=== PATIENT | female | born 1950 | race Caucasian/White ===

== ENCOUNTER 2017-10-20 17:29 | Emergency (ER) | payer OTHER ==
[2017-10-20 17:42] VITALS: BP 127/82
--- NOTE | 2017-10-20 18:11 | EDPHY ---
H & P Time Seen by Provider: 10/20/17 17:36 HPI/ROS: 67-year-old female presents complaining swelling, redness and oozing from a wound where she had a melanoma removed 1 week ago. No fevers or chills Review of systems as per hpi General no fever no chills no weakness HEENT no eye pain no eye discharge. No eye redness, no sore throat Respiratory no cough, no shortness of breath Cardiac no chest pain, no peripheral edema GI no abdominal pain, no diarrhea, no constipation, no nausea, no vomiting no flank pain, no hematuria, no dysuria Musculoskeletal no myalgias, no joint pain Heme no easy bruising, no easy bleeding Endo no polyuria, no polydipsia Skin positive rashes, no pruritus Neuro no syncope, no dizziness, no headaches Psych is no suicidal ideation, no homicidal ideation Past Medical/Surgical History: Chronic lung infections Melanoma Social History: Denies alcohol or drug use Smoking Status: Never smoked Physical Exam: 67-year-old female alert and oriented no acute distress nontoxic appearance, afebrile Atraumatic normocephalic Neck no JVD No respiratory distress Back Mid lower back with healing wound with serosanguineous drainage One suture visible at each end of the wound, scattered areas of erythema and induration Not fluctuant wound area with slight swelling and erythema 4 cm by 1.5 cm Constitutional: Initial Vital Signs Temperature (C) 37.3 C 10/20/17 17:36 Heart Rate 95 10/20/17 17:36 Respiratory Rate 16 10/20/17 17:36 Blood Pressure 127/82 H 10/20/17 17:36 O2 Sat (%) 96 10/20/17 17:36 O2 Delivery Mode Room Air Allergies/Adverse Reactions: ciprofloxacin Allergy (Severe, Verified 10/20/17 17:59) Sulfa (Sulfonamide Antibiotics) Allergy (Severe, Verified 10/20/17 17:58) Anaphylaxis codeine Adverse Reaction (Verified 10/20/17 17:57) decongestants Adverse Reaction (Intermediate, Uncoded 10/20/17 17:57) Home Medications: Medication Instructions Recorded AMOXICILLIN 10/20/17 Accolate 10/20/17 Amitiza 10/20/17 Amitriptyline HCl 10/20/17 Amlodipine Besylate 10/20/17 Belsomra 10/20/17 Biaxin (*) 10/20/17 Ciprofloxacin 10/20/17 Clindamycin HCl [Clindamycin] 300 mg PO TID 10 Days #30 cap 10/20/17 Compazine 10mg (*) 10/20/17 Effexor Xr 10/20/17 Fluconazole 10/20/17 Fluticasone Propionate 10/20/17 Levothyroxine 10/20/17 Moexipril HCl 10/20/17 Myrbetriq 10/20/17 Omeprazole 10/20/17 PROVENTIL HFA 10/20/17 Pravastatin Sodium 10/20/17 busPIRone 10/20/17 traZODone 10/20/17 Medical Decision Making ED Course/Re-evaluation: Patient seen and evaluated for postoperative wound redness. Impression Wound infection Plan Send wound culture Start Clindamycin, 300 mg three times daily times 10 days Skin marker used to outline area of erythema Advise to arrange earlier follow up with her surgeon next week Return if redness worsening Differential Diagnosis: Differential diagnosis considered but not limited to: Wound infection, wound seroma, abscess, cellulitis - Data Points Medications Given: Discontinued Medications Clindamycin (Cleocin 150 Mg Prepack#6) 1 btl TAKEHOME EDNOW ONE PRN Reason: Protocol Stop: 10/20/17 18:13 Last Admin: 10/20/17 18:48 Dose: 1 btl Departure - Departure Disposition: Home, Routine, Self-Care Clinical Impression: Wound infection after surgery Condition: Good Instructions: Wound Infection (ED) Referrals: Catherine Rice MD [Primary Care Provider] - As per Instructions Prescriptions: Clindamycin HCl [Clindamycin] 300 mg PO TID 10 Days #30 cap
[2017-10-20] MEDS ORDERED: CLINDAMYCIN 150MG PREPACK#6 BTL TAKEHOME ONE (18:12)
== END 2017-10-20 18:43 | disposition home or self-care (01) ==
LOC: CED 17:29
DX: T81.4XXA Infection following a procedure, initial encounter (principal); Z85.820 Personal history of malignant melanoma of skin; Y82.8 Other medical devices associated with adverse incidents